=== PATIENT | male | born 1955 | race American Indian/Alaskan Native ===

== ENCOUNTER 2018-12-22 16:52 | Emergency (ER) | payer SELFPAY ==
--- NOTE | 2018-12-22 16:59 | Event Note ---
ED Screening Note Date of service: 12/22/18 Time: 16:58 ED Screening Note: 63 y/o male comes in for left foot sore for a few weeks. Was wearing tennis shoe with no socks. PMH CHF This initial assessment/diagnostic orders/clinical plan/treatment(s) is/are subject to change based on patients health status, clinical progression and re- assessment by fellow clinical providers in the ED. Further treatment and workup at subsequent clinical providers discretion. Patient/guardian urged not to elope from the ED as their condition may be serious if not clinically assessed and managed. Initial orders include:
[2018-12-22 17:17] VITALS: BP 128/96
--- NOTE | 2018-12-22 18:01 | Emergency Department Report ---
- General Chief Complaint: Skin/Abscess/Foreign Body Stated Complaint: LFT FOOT INJURY/PAIN Time Seen by Provider: 12/22/18 17:11 Source: patient Mode of arrival: Ambulatory Limitations: No Limitations - History of Present Illness Initial Comments: Patient is a 63-year-old male who presents to the emergency room with complaints of a wound to the left foot that began 2 weeks ago. He states he was wearing sneakers without any socks and has an ulceration to the left foot. He states he has noticed some clear drainage. The patient states he has already been and one emergency department and given antibiotics and something for pain. He states he has had continued pain. he states the pain medicine only "lasted him 3 days." The patient states he has an appointment with the wound clinic on January 07. He has a past medical history of heart failure and high blood pressure. - Related Data Previous Rx's Medication Instructions Recorded Last Taken Type Acetaminophen/Codeine [Tylenol 1 tab PO Q6H PRN #10 tab 12/22/18 Unknown Rx /Codeine # 3 tab] Clindamycin [Clindamycin CAP] 450 mg PO TID 7 Days #63 capsule 12/22/18 Unknown Rx Allergies Allergy/AdvReac Type Severity Reaction Status Date / Time No Known Allergies Allergy Unverified 12/22/18 16:58 ED Review of Systems ROS: Stated complaint: LFT FOOT INJURY/PAIN Other details as noted in HPI Comment: All other systems reviewed and negative ED Past Medical Hx - Social History Smoking Status: Never Smoker Substance Use Type: None - Medications Home Medications: Home Medications Medication Instructions Recorded Confirmed Last Taken Type Acetaminophen/Codeine [Tylenol 1 tab PO Q6H PRN #10 tab 12/22/18 Unknown Rx /Codeine # 3 tab] Clindamycin [Clindamycin CAP] 450 mg PO TID 7 Days #63 capsule 12/22/18 Unknown Rx ED Physical Exam - General Limitations: No Limitations General appearance: alert, in no apparent distress - Head Head exam: Present: atraumatic, normocephalic - Eye Eye exam: Present: normal appearance - ENT ENT exam: Present: mucous membranes moist - Respiratory Respiratory exam: Present: normal lung sounds bilaterally. Absent: respiratory distress, wheezes, rales, rhonchi, stridor, accessory muscle use, decreased breath sounds, prolonged expiratory - Cardiovascular Cardiovascular Exam: Present: regular rate, normal rhythm, normal heart sounds. Absent: systolic murmur, diastolic murmur, rubs, gallop - Neurological Exam Neurological exam: Present: alert, oriented X3 - Psychiatric Psychiatric exam: Present: normal affect, normal mood - Skin Skin exam: Present: warm, other (2 cm shallow ulceration to the left foot small amount of drainage, no necrosis, no surrounding cellulitis) ED Course Vital Signs 12/22/18 16:58 Temperature 98.6 F Pulse Rate 73 Respiratory 18 Rate Blood Pressure 128/96 O2 Sat by Pulse 98 Oximetry ED Medical Decision Making - Medical Decision Making Patient is a 63-year-old male who presents to the emergency room with complaints of a wound to the left foot that began 2 weeks ago. He states he was wearing sneakers without any socks and has an ulceration to the left foot. He states he has noticed some clear drainage. The patient states he has already been and one emergency department and given antibiotics and something for pain. He states he has had continued pain. he states the pain medicine only "lasted him 3 days." The patient states he has an appointment with the wound clinic on January 07. He has a past medical history of heart failure and high blood pressure. on exam: 2 cm shallow ulceration to the left foot small amount of drainage, no necrosis, no surrounding cellulitis, no abscess present. VSS. pt written prescription for tylenol with codeine and clindamycin. advised to please take medication as prescribed. do not drive or operate heavy machinery while taking pain medication. please follow up with wound care as soon as possible. return to the emergency room for any new or worsening symptoms. - Differential Diagnosis ulceration, abscess, cellulitis Critical care attestation.: If time is entered above; I have spent that time in minutes in the direct care of this critically ill patient, excluding procedure time. ED Disposition Clinical Impression: Wound of left foot Disposition: [id number] TO HOME OR SELFCARE Is pt being admited?: No Does the pt Need Aspirin: No Condition: Stable Instructions: Acute Wound Care (ED) Additional Instructions: please take medication as prescribed. do not drive or operate heavy machinery while taking pain medication. please follow up with wound care as soon as possible. return to the emergency room for any new or worsening symptoms. Prescriptions: Clindamycin [Clindamycin CAP] 450 mg PO TID 7 Days #63 capsule Acetaminophen/Codeine [Tylenol /Codeine # 3 tab] 1 tab PO Q6H PRN #10 tab PRN Reason: Pain , Severe (7-10) Referrals: [facility] - [facility] Time of Disposition: 18:00 Print Language: GREEK
== END 2018-12-22 18:19 | disposition home or self-care (01) ==
LOC: ED 16:52
DX: T81.89XA Other complications of procedures, not elsewhere classified, initial encounter (principal)
CPT/HCPCS: 99282